=== PATIENT | female | born 1960 | race Caucasian/White ===

== ENCOUNTER 2017-06-21 10:24 | Emergency (ER) | payer MEDICARE ==
[~2017-06-21] VITALS: Ht 154.9 cm; Wt 68.2 kg
[~2017-06-21 10:24] MED LIST: AMLO5TAB2 PO; ARMO120T PO; BUPR150CR PO; DICL75TA PO; OXYC-404 PO; [UNRECOGNIZED DRUG - OTHER] PO
[2017-06-21 10:27] VITALS: BP 131/88; PULSE 99; RESP 18; TEMP 98.3; O2SAT 95
--- NOTE | 2017-06-21 10:53 | PD ---
HPI Chief Complaint: Cardiac Complaint Time Seen by Provider: 10:41 Travel History International Travel<30 days: No Contact w/Intl Traveler<30days: No Traveled to known affect area: No History of Present Illness HPI This 56-year-old female is complaining of palpitations. She has been feeling very nauseated since yesterday. She thought she might have a migraine coming on. Last night she started having heart palpitations which have been fairly persistent. She has had ongoing nausea since she is unable to eat or drink anything. She feels like her heartbeat is irregular. She has a history of hypertension and is on amlodipine. She has also been having troubles with her right hip and has been on diclofenac and Advil. She did get a shot of Toradol yesterday. She takes Wellbutrin as well as thyroid pills. She did see Dr. Seth a few years ago and was told she had a slight valve leak in 1 of her valves but that otherwise her heart was okay. She has had a cholecystectomy PFSH Past Medical History Depression: Yes Diminished Hearing: No Herniated Disk: Yes (BACK AND NECK) Hypertension: Yes Musculoskeletal: Yes (3 CERVICAL DISC BULGING) Influenza Vaccination: No ?: Not Tubal Ligation: Yes Past Surgical History Cholecystectomy: Yes Social History Alcohol Use: Yes (SOCIAL) Tobacco Use: Yes (PPD) Substance Use: No Allergies-Medications (Allergen,Severity, Reaction): Coded Allergies: codeine (Unverified Allergy, Severe, Nausea/Vomiting, 06/21/17) tramadol (Unverified Allergy, Severe, Nausea/Vomiting, 06/21/17) Reported Meds & Prescriptions Reported Meds & Active Scripts Active Reported [place] Thyroid (Thyroid) 120 Mg Tab 120 Mg PO DAILY Diclofenac Sodium DR (Diclofenac Sodium) 75 Mg Tabdr 75 Mg PO DAILY Amlodipine (Amlodipine Besylate) 5 Mg Tab 5 Mg PO DAILY Adult One Daily Gummies (Multiple Vitamins W/ Minerals) 200 Mcg Chw 1 Chew PO DAILY Wellbutrin SR 12 HR (Bupropion HCl) 150 Mg Tab 300 Mg PO DAILY Oxycodone ER (Oxycodone HCl) 10 Mg Tab 10 Mg PO Q8HR Review of Systems General / Constitutional: No: Fever, Chills Eyes: No: Diploplia, Blurred Vision HENT: Positive: Headaches, No: Vertigo Cardiovascular: Positive: Palpitations, No: Chest Pain or Discomfort Respiratory: No: Cough, Shortness of Breath Gastrointestinal: Positive: Nausea Genitourinary: No: Urgency, Frequency Musculoskeletal: No: Myalgias Skin: No Rash Psychiatric: No: Anxiety Endocrine: No: Heat Intolerance, Cold Intolerance Hematologic/Lymphatic: Positive: Easy Bruising Physical Exam Narrative GENERAL: Well-developed female SKIN: Focused skin assessment warm/dry. HEAD: Atraumatic. Normocephalic. EYES: Pupils equal and round. No scleral icterus. No injection or drainage. ENT: No nasal bleeding or discharge. Mucous membranes pink and moist. NECK: Trachea midline. No JVD. CARDIOVASCULAR: Regular rate and rhythm. No murmur appreciated. RESPIRATORY: No accessory muscle use. Clear to auscultation. Breath sounds equal bilaterally. GASTROINTESTINAL: Abdomen soft, non-tender, nondistended. Hepatic and splenic margins not palpable. MUSCULOSKELETAL: No obvious deformities. No clubbing. No cyanosis. No edema. NEUROLOGICAL: Awake and alert. No obvious cranial nerve deficits. Motor grossly within normal limits. Normal speech. PSYCHIATRIC: Appropriate mood and affect; insight and judgment normal. Data Data Last Documented VS Vital Signs Date Time Temp Pulse Resp B/P (MAP) Pulse Ox O2 Delivery O2 Flow Rate FiO2 06/21/17 11:30 88 141/83 (102) 95 06/21/17 10:27 98.3 18 Orders Orders Complete Blood Count With Diff (06/21/17 10:49) Comprehensive Metabolic Panel (06/21/17 10:49) Lipase (06/21/17 10:49) Sodium Chlor 0.9% 1000 Ml Inj (Ns 1000 M (06/21/17 11:00) Ondansetron Inj (Zofran Inj) (06/21/17 11:00) Potassium Chloride (Kcl) (06/21/17 11:45) Labs Laboratory Tests Test 06/21/17 11:07 White Blood Count 5.4 TH/MM3 Red Blood Count 4.26 MIL/MM3 Hemoglobin 14.1 GM/DL Hematocrit 41.4 % Mean Corpuscular Volume 97.1 FL Mean Corpuscular Hemoglobin 33.0 PG Mean Corpuscular Hemoglobin Concent 34.0 % Red Cell Distribution Width 11.4 % Platelet Count 184 TH/MM3 Mean Platelet Volume 7.6 FL Neutrophils (%) (Auto) 71.0 % Lymphocytes (%) (Auto) 19.0 % Monocytes (%) (Auto) 7.6 % Eosinophils (%) (Auto) 2.0 % Basophils (%) (Auto) 0.4 % Neutrophils # (Auto) 3.9 TH/MM3 Lymphocytes # (Auto) 1.0 TH/MM3 Monocytes # (Auto) 0.4 TH/MM3 Eosinophils # (Auto) 0.1 TH/MM3 Basophils # (Auto) 0.0 TH/MM3 CBC Comment DIFF FINAL Differential Comment Blood Urea Nitrogen 15 MG/DL Creatinine 0.69 MG/DL Random Glucose 91 MG/DL Total Protein 6.9 GM/DL Albumin 3.6 GM/DL Calcium Level 8.9 MG/DL Alkaline Phosphatase 150 U/L Aspartate Amino Transf (AST/SGOT) 190 U/L Alanine Aminotransferase (ALT/SGPT) 153 U/L Total Bilirubin 1.2 MG/DL Sodium Level 137 MEQ/L Potassium Level 3.1 MEQ/L Chloride Level 97 MEQ/L Carbon Dioxide Level 30.8 MEQ/L Anion Gap 9 MEQ/L Estimat Glomerular Filtration Rate 88 ML/MIN Lipase 220 U/L [facility] Medical Decision Making Medical Screen Exam Complete: Yes Emergency Medical Condition: Yes Medical Record Reviewed: Yes Differential Diagnosis Differential includes gastritis, dysrhythmia, electrolyte imbalance Narrative Course EKG shows sinus rhythm. Her potassium was 3.1. Of note her AST is 190 with ALT of 153 and her total bilirubin is 1.2. She does not have any abdominal pain and she has had a cholecystectomy. I suspect a lot of her symptoms are related to her medications. Recommend that she not take the diclofenac and ibuprofen on the same dayS, it would be best not to take them for a few days. I will prescribe Zofran. She is to follow-up with Dr. León regarding her liver function abnormalities Diagnosis Primary Impression: Acute gastritis Scripts Pantoprazole (Protonix) 40 Mg Tab 40 MG PO DAILY for Reflux, #30 TAB 0 Refills Prov: Feliz Odonnell MD 06/21/17 Ondansetron Odt (Zofran Odt) 4 Mg Tab 4 MG SL Q6HR Y for Nausea/Vomiting, #10 TAB 0 Refills Prov: Feliz Odonnell MD 06/21/17 Disposition: 01 DISCHARGE HOME Condition: Stable Feliz Odonnell MD Jun 21, 2017 10:52
[2017-06-21] MEDS ORDERED: SODIUM CHLOR 0.9% 1000 ML INJ 1,000 ML IV ONE (11:00)
[2017-06-21] MEDS ORDERED: ONDANSETRON HCL 4 MG/2 ML VIAL IV PUSH ONE (11:00)
[2017-06-21 11:20] LABS: AUTOMATED NEUTROPHIL # 3.9 TH/MM3 (1.8-7.7); BASOPHIL % 0.4 % (0.0-2.0); EOSINOPHIL # 0.1 TH/MM3 (0-0.4); HEMATOCRIT 41.4 % (35.0-46.0); HEMOGLOBIN 14.1 GM/DL (11.6-15.3); MEAN CELL VOLUME 97.1 FL (80.0-100.0); MEAN PLATELET VOLUME 7.6 FL (7.0-11.0); MONO % 7.6 % (0.0-8.0); MONOCYTE # 0.4 TH/MM3 (0-0.9); PLATELET COUNT 184 TH/MM3 (150-450); RED BLOOD COUNT 4.26 MIL/MM3 (4.00-5.30); RED CELL DISTRIBUTION WIDTH 11.4 % (11.6-17.2); WHITE BLOOD COUNT 5.4 TH/MM3 (4.0-11.0)
[2017-06-21 11:28] LABS: CHLORIDE 97 MEQ/L (98-107); SODIUM (NA) 137 MEQ/L (136-145)
[2017-06-21 11:30] VITALS: BP 141/83; PULSE 88; O2SAT 95
[2017-06-21 11:31] LABS: CALCIUM 8.9 MG/DL (8.5-10.1)
[2017-06-21 11:32] LABS: ALBUMIN 3.6 GM/DL (3.4-5.0); BICARBONATE 30.8 MEQ/L (21.0-32.0); BLOOD UREA NITROGEN 15 MG/DL (7-18); GLUCOSE,RANDOM 91 MG/DL (74-106)
[2017-06-21 11:35] LABS: ALT (GPT) 153 U/L (10-53); AST (GOT) 190 U/L (15-37); CREATININE 0.69 MG/DL (0.50-1.00); GLOMERULAR FILTRATION RATE 88 ML/MIN (>89)
[2017-06-21 11:36] LABS: TOTAL BILIRUBIN ADULT 1.2 MG/DL (0.2-1.0); TOTAL PROTEIN 6.9 GM/DL (6.4-8.2)
[2017-06-21 11:37] LABS: ALKALINE PHOSPHATASE 150 U/L (45-117)
[2017-06-21] MEDS ORDERED: POTASSIUM CHLORIDE 20 MEQ CONTROLLED RELEASE TAB PO ONE (11:45)
[2017-06-21] MEDS ORDERED: ZOFR4TAB3 SL (11:50)
[2017-06-21] MEDS ORDERED: PROT40TA PO (11:50)
[2017-06-21] MEDS ORDERED: PANTOPRAZOLE SOD 40 MG DELAYED RELEASE TAB PO ONE (12:00)
--- NOTE | 2017-06-22 13:43 | EKG ---
Date Performed: 06/21/2017 Time Performed: 10:43:33 PTAGE: 56 years EKG: Sinus rhythm POSSIBLE LEFT ATRIAL ENLARGEMENT BORDERLINE ECG NO PREVIOUS TRACING DOCTOR: Shi Wadsworth Interpretating Date/Time 06/22/2017 13:40:01
== END 2017-06-21 12:19 | disposition home or self-care (01) ==
LOC: PHED 10:24
DX: K29.00 Acute gastritis without bleeding (principal); R00.2 Palpitations; I10 Essential (primary) hypertension; F32.9 Major depressive disorder, single episode, unspecified; F17.200 Nicotine dependence, unspecified, uncomplicated; Z88.5 Allergy status to narcotic agent; Z88.8 Allergy status to other drugs, medicaments and biological substances; Z79.899 Other long term (current) drug therapy
CPT/HCPCS: 80053; 83690; 85025; 93005; 96361; 96374; 99284; J2405; J7030